=== PATIENT | male | born 1980 | race Caucasian/White ===

== ENCOUNTER 2017-03-22 11:47 | Emergency (ER) | payer MEDICAID ==
[~2017-03-22] VITALS: Ht 182.9 cm; Wt 83.7 kg
[~2017-03-22 11:47] MED LIST: HYDR-4446 PO
[2017-03-22 11:55] VITALS: BP 133/69
--- NOTE | 2017-03-22 13:35 | NUR ---
PATIENT TO BED 7
[2017-03-22] MEDS ORDERED: KETOROLAC 60 MG/2 ML VIAL IM ONE (13:45)
[2017-03-22] MEDS ORDERED: traMADol 50 MG TAB PO ONE (13:45)
--- NOTE | 2017-03-22 14:10 | NUR ---
36M BIB FAMILY C/O FACIAL SWELLING TO NOSE/CHEEK BONES WITH HEADACHE X YESTERDAY; PT STATES NO TRAUMA OR INJURY TO SITES AT THIS TIME. DENIES N/V/D; SKIN IS PINK/WARM/DRY; AAOX4 WITH EVEN AND STEADY GAIT; LUNGS CLEAR BL; HR EVEN AND REGULAR; PT DENIES ANY FEVER, CP, SOB, OR COUGH AT THIS TIME; PATIENT STATES PAIN OF 8/10 AT THIS TIME; VSS; PATIENT POSITIONED FOR COMFORT; HOB ELEVATED; BEDRAILS UP X2; BED DOWN. ER MADE AWARE OF PT STATUS. Addendum: 03/22/17 at 1430 by [email or web address] MOTHER AT BEDSIDE
--- NOTE | 2017-03-22 14:31 | NUR ---
PAIN 3/10.Patient appears to be resting comfortably in bed. Vital Signs within normal limits. Respirations even and unlabored. WILL CONTINUE TO MONITOR.
[2017-03-22 14:59] VITALS: BP 115/77
--- NOTE | 2017-03-22 14:59 | NUR ---
Patient discharged with v/s stable. Written and verbal after care instructions given and explained. Patient alert, oriented and verbalized understanding of instructions. Ambulatory with steady gait. All questions addressed prior to discharge. ID band removed. Patient advised to follow up with PMD. Rx of IBUPROFEN & TRAMADOL given. Patient educated on indication of medication including possible reaction and side effects. Opportunity to ask questions provided and answered.
== END 2017-03-22 14:59 | disposition home or self-care (01) ==
LOC: MED 11:47
DX: H53.8 Other visual disturbances (principal); G44.209 Tension-type headache, unspecified, not intractable; R03.0 Elevated blood-pressure reading, without diagnosis of hypertension
CPT/HCPCS: 96372; 99283; J1885